=== PATIENT | female | born 1995 | race Asian ===

== ENCOUNTER → 2017-07-03 | Outpatient (REF) | LOC: WSOH 08:38 | DX: Z02.89 Encounter for other administrative examinations (principal) ==

== ENCOUNTER 2017-12-17 14:32 | Emergency (ER) | payer OTHER ==
[~2017-12-17] VITALS: Ht 149.9 cm; Wt 45.5 kg
[2017-12-17 14:35] VITALS: BP 165/89; PULSE 89; TEMP 98.2
== END 2017-12-17 15:09 | disposition home or self-care (01) ==
LOC: COL.ER 14:32
DX: G47.00 Insomnia, unspecified (principal); T43.615A Adverse effect of caffeine, initial encounter